=== PATIENT | female | born 1945 | race Caucasian/White ===

== ENCOUNTER 2025-01-28 10:07 | Emergency (ER) | payer MEDICARE, SELFPAY ==
--- NOTE | ~2025-01-28 | XR_ITS ---
Examination: XR abdomen/kub 1V Clinical History: bilateral CVA tenderness Comparison: None Technique: 2 views frontal abdomen Findings: No nephroureteral calculi identified. Tiny left upper quadrant calcification, unclear location but external to renal shadow. Nonspecific bowel gas pattern. No acute bony abnormality. IMPRESSION: 1. No acute abnormality. Reviewed, dictated and finalized at location R. NE SPECIALIST IMPRESSION: 1. No acute abnormality.
[2025-01-28 10:20] VITALS: BP 108/67; PULSE 92; RESP 16; TEMP 36.7; O2SAT 100
--- NOTE | 2025-01-28 11:34 | ED_ITS ---
HPI - General Adult General Chief complaint: Urogenital-Female Stated complaint: PROBLEMS URINATING Time Seen by Provider: 01/28/25 11:34 History of Present Illness HPI narrative: 79-year-old female patient presents to [facility] with complaints of urinary symptoms for the past week. Patient states that she knows she has had some frequent urination and states that she has had some irritation to the urethral area when she pees at times but does not describe it as any kind of burning pain. Patient states she has had some lower back pain, chills and body aches but denies any fevers that she is aware of. Related Data Home Medications ?Medication ?Instructions ?Recorded ?Confirmed ?Last Taken ?Type citalopram 10 mg tablet 10 mg PO DAILY 01/24/19 Unk nown History levothyroxine 25 mcg tablet 25 mcg PO DAILY 01/24/19 Unknown History (Synthroid) memantine 10 mg tablet 10 mg PO BID 01/24/19 Unkno wn History dulaglutide 0.75 mg/0.5 mL mg subcut 01/28/25 Unknown History subcutaneous pen injector (Trulicity) Allergies Allergy/AdvReac Type Severity Reaction Status Date / Time No Known Allergies Allergy Unverified 07/01/16 08:22 Review of Systems Review of Systems: CONSTITUTIONAL: Denies fever, positive body aches and chills, denies sweats. EYES: Denies visual changes, redness, or discharge. ENT: Denies rhinorrhea, congestion, sore throat, or otalgia. CARDIOVASCULAR: Denies chest pain, palpitations, or edema. RESPIRATORY: Denies cough or dyspnea. GASTROINTESTINAL: Denies abdominal pain, nausea, vomiting, or diarrhea. GENITOURINARY: Positive dysuria denies gross hematuria. SKIN: Denies rash or itching. MUSCULOSKELETAL: positive low back pain, denies joint pain, or myalgia. NEUROLOGIC: Denies headache, numbness, or weakness. PSYCHIATRIC: Denies anxiety or depression. [facility] Past Medical History Medical History (Updated 01/28/25 @ 12:08 by Regla Cruz APRN) Urinary bladder disorder Diabetes Arthritis Surgical History Surgical History History of hand surgery History of arthroplasty of left knee History of section History of hysterectomy History of appendectomy Family History Family History Other Hypertension Social History Social History Smoking status: Never smoker Alcohol intake: current Comments at the time of my signature I agree with nursing past medical history, surgical, social, and family history. There is no relevant family history pertinent to the presenting complaint. Exam Narrative: GENERAL: Well-appearing, well-nourished, and in no acute distress. HEAD: Normocephalic, atraumatic. EYES: PERRLA and EOMI. ENT: Nares clear, no rhinorrhea or epistaxis. Mucous membranes moist. NECK: Supple. No lymphadenopathy CHEST: Clear to auscultation. No respiratory distress. HEART: Regular rate and rhythm. No murmur heard. Normal peripheral pulses. ABDOMEN: Soft, nontender, nondistended, normal active bowel sounds. bilateral CVA tenderness on percussion EXTREMITIES: Normal range of motion. No edema. SKIN: Warm, dry, no rash. NEURO: No focal deficits. Alert and oriented x3. Course Course Level of Care: Express Care Visit Reevaluation(s) Reevaluation #1: re-evaluated patient notified her that the x-ray is negative for any obvious kidney stones. We will discharge home with an oral antibiotic for possible urinary tract infection however for symptoms do not resolve then she needs to follow up with her primary doctor for further evaluation and treatment. Patient verbalized understanding denies any other questions or concerns at this time. Date: 01/28/25 Time: 12:10 Vital Signs Vital signs: Vital Signs Temperature 36.7 C 01/28/25 10:20 Pulse Rate 92 01/28/25 10:20 Respiratory Rate 16 01/28/25 10:20 Blood Pressure 108/67 01/28/25 10:20 Pulse Oximetry 100 01/28/25 10:20 Temperature 36.7 C 01/28/25 10:20 Pulse Rate 92 01/28/25 10:20 Respiratory Rate 16 01/28/25 10:20 Blood Pressure 108/67 01/28/25 10:20 Pulse Oximetry 100 01/28/25 10:20 vital signs reviewed. MDM MDM Narrative Medical decision making narrative: Plan care for patient is to obtain a KUB today just to rule out kidney stones as causing the low back pain. If this is negative most likely will discharge home with oral antibiotics to treat a possible UTI and send the urine off to the lab for culture. Differential Diagnosis Differential Diagnosis: Differential diagnosis: Uncomplicated lower UTI, uncomplicated UTI, pyelonephritis Lab Data Labs: Lab Results 01/28/25 Range/Units 10:23 POC Urine Color Yellow POC Urine Clarity Clear POC Urine pH 6.0 POC Ur Specif [place] 1.015 POC Urine Protein Negative (Negative) POC Ur Glucose (UA) Trace (Negative) POC Urine Ketones Negative (Negative) POC Urine Blood Negative (Negative) POC Urine Nitrite Negative (Negative) POC Urine Bilirubin Negative (Negative) POC Urine Urobilinogen 0.2 POC U Leukocyte Esteras Trace (Negative) Imaging Data Radiologist's impression: ITS Impressions Abdomen X-Ray 01/28/25 11:54 IMPRESSION: 1. No acute abnormality. [address] [place] [address] XRay Report Signed Patient: Hamida Herbert : 1945 MR#: [id number] Age: 79 Acct:[id number] Loc: [id number] ADM Date: 01/28/[address]: Ordering Physician: Regla Cruz APRN Date of Service: 01/28/25 Procedure(s): XR abdomen/kub 1V Accession Number(s): [id number] cc: Amelia,Eun; Regla Cruz GRAPHITE PAN DRIER TENDER~ Examination: XR abdomen/kub 1V Clinical History: bilateral CVA tenderness Comparison: None Technique: 2 views frontal abdomen Findings: No nephroureteral calculi identified. Tiny left upper quadrant calcification, unclear location but external to renal shadow. Nonspecific bowel gas pattern. No acute bony abnormality. IMPRESSION: 1. No acute abnormality. Reviewed, dictated and finalized at location R. NG MACHINE OPERATOR Discharge Plan Discharge Clinical Impression: Urinary tract infection Patient Disposition: Home Condition: Stable Instructions: Antibiotic Form, Urinary Tract Infection in Women (ED) Additional Instructions: We will send a urine culture off to the lab; if the culture identifies an organism that the prescribed antibiotic will not treat, you will receive a phone call from an urgent care staff member and an appropriate antibiotic will be prescribed. -Your symptoms should begin to improve within a day of starting antibiotics. But you should finish all the antibiotic pills you get. Otherwise your infection might come back. -Also recommend: drink more fluid. It might help flush out germs, and it does no harm -Tylenol/ibuprofen prn for pain or fever -Follow-up with your primary care provider for urine recheck or seek ER visit if condition worsens with high fever, nausea, vomiting and severe back pain. Patient Language: Faroese Prescriptions: New sulfamethoxazole-trimethoprim [Bactrim DS] 800-160 mg tablet 1 tablet PO Q12H 3 Days Qty: 6 0RF No Action Trulicity 0.75 mg/0.5 mL pen injector SUBCUT levothyroxine [Synthroid] 25 mcg tablet 25 mcg PO DAILY citalopram 10 mg tablet 10 mg PO DAILY memantine 10 mg tablet 10 mg PO BID Follow-up/Referrals: Amelia,Eun [Other] Time of Disposition: 12:08
[2025-01-28 11:53] LABS: EDUAAPPEAR Clear; EDUABILI Negative (Negative); EDUABLOOD Negative (Negative); EDUACOLOR1 Yellow; EDUAGLUCOSE Trace (Negative); EDUAKETONE Negative (Negative); EDUALEUKO Trace (Negative); EDUANITRATE Negative (Negative); EDUAPH 6.0; EDUAPROTEIN Negative (Negative); EDUASPGRAVITY 1.015; EDUAUROBILI 0.2
== END 2025-01-28 12:17 | disposition home or self-care (01) ==
PROVIDERS: Emergency Provider Nurse Practitioner Family
DX: N39.0 Urinary tract infection, site not specified (principal); E11.9 Type 2 diabetes mellitus without complications; Z79.85 Long-term (current) use of injectable non-insulin antidiabetic drugs; M19.90 Unspecified osteoarthritis, unspecified site; Z96.652 Presence of left artificial knee joint
CPT/HCPCS: 74018; 81003; 87086; 99213; G0463